=== PATIENT | male | born 1970 | race Caucasian/White ===

== ENCOUNTER 2021-03-02 19:45 | Inpatient (IN) | payer BC, SELFPAY ==
--- NOTE | ~2021-03-02 | XR_ITS ---
EXAMINATION: XR chest 2V DATE: 03/02/2021 20:14 INDICATION: 2 days of weakness and abdominal pain TECHNIQUE: PA and lateral views of the chest were obtained. COMPARISON: None FINDINGS: The lungs are clear with no focal airspace opacities, pulmonary edema, pleural effusion or pneumothor ax. Mild S-shaped curvature of the thoracolumbar spine. Cholecystectomy clips in right upper quadrant . IMPRESSION: 1. No acute cardiopulmonary disease. Reviewed, dictated and finalized at location [facility].
--- NOTE | ~2021-03-02 | CT_ITS ---
EXAMINATION: CT abdomen pelvis w con DATE: 03/03/2021 01:08 INDICATION: Upper and mid abdominal pain. Elevated lipase. TECHNIQUE: Computed tomography (CT) of the abdomen and pelvis was performed with 100 cc Omnipaque 350 intravenous contrast. Automated exposure control and iterative reconstruction technique were employe d. Exam dose: 270.27 mGy-cm total exam DLP. COMPARISON: None. FINDINGS: Normal heart size. No pericardial or pleural effusion. The lung bases are clear. Status post cholecystectomy. No bile duct or pancreatic duct dilatation. The liver, spleen, pancreas, and adrenal glands and kidneys are unremarkable. No urinary tract calculus or hydroureteronephrosis. Normal caliber of the abdominal aorta. No intraperitoneal or retroperitoneal or pelvic mass lesion or adenopathy or ascites. The urinary bladder is unremarkable. Normal appendix. No bowel obstruction, bowel wall thickening, pneumatosis or intraperitoneal free air . Included skeletal structures are unremarkable. IMPRESSION: Pancreas appears normal. Normal CT examination of pancreas pancreas does not exclude villalobos creatitis. Normal appendix Status post cholecystectomy Reviewed, dictated and finalized at [facility]. Reviewed, dictated and finalized at location [facility]. IMPRESSION: Pancreas appears normal. Normal CT examination of pancreas pancrea s does not exclude pancreatitis. Normal appendix Status post cholecystectomy
--- NOTE | 2021-03-02 19:47 | ECG_ITS ---
Measurements Intervals [place] Rate: 98 P: 47 [place]: 151 QRS: 48 QRSD: 114 T: 63 QT: 396 QTc: 508 Interpretive Statements SINUS RHYTHM INCOMPLETE RIGHT BUNDLE BRANCH BLOCK BORDERLINE ST-T WAVE ABNORMALITY- DIFFUSE LEADS BASELINE ARTIFACT- I, II, AVR, AVL, AVF BORDERLINE ECG Electronically Signed On 03-02-2021 20:11:50 CDT by Marco A Gayle D.O.
[2021-03-02 20:08] VITALS: BP 128/78; PULSE 85; RESP 20; TEMP 36.8; O2SAT 95
[2021-03-02 20:14] LABS: Basophils Percent Auto 0.3 % (0.2-1.2); Eosinophils Percent Auto 0.2 % (0-4.4); Hematocrit 41.2 % (42.0-52.0); Hemoglobin 15.2 g/dL (14.0-18.0); Immature Granulocyte Absolute 0.11 K/mm3 (0.00-0.031); Immature Granulocyte Percent A 1.7 % (0-0.5); Lymphocytes Absolute Auto 1.01 K/mm3 (0.9-3.2); Lymphocytes Percent Auto 15.8 % (18.3-44.2); Mean Corpuscular HGB Conc 36.9 g/dl (32-36); Mean Corpuscular Hemoglobin 33.9 pg (26-34); Mean Platelet Volume 8.3 fl (7.4-10.4); Monocytes Absolute Auto 0.8 K/mm3 (0.1-0.6); Monocytes Percent Auto 12.6 % (2.6-8.5); Neutrophils Absolute Auto 4.5 K/mm3 (1.3-6.7); Neutrophils Percent Auto 69.4 % (45.5-73.1); Platelet Count Result 218 k/mm3 (150-375); Red Blood Count 4.48 M/mm3 (4.6-6.20); Red Cell Distribution Width 12.4 % (11.5-14.5); White Blood Count 6.4 K/mm3 (4.5-10.0)
[2021-03-02 20:30] LABS: Alanine Aminotransferase 17 U/L (4-50); Albumin Level 4.8 g/dL (3.5-5.1); Alkaline Phosphatase 153 U/L (38-126); Anion Gap 25 mmol/L (8-16); Aspartate Amino Transferase 19 U/L (17-59); Bilirubin,Total 0.8 mg/dL (0.2-1.3); Blood Urea Nitrogen 14 mg/dL (9-20); Calcium 9.4 mg/dL (8.4-10.2); Carbon Dioxide 7 mmol/L (22-30); Chloride 98 mmol/L (98-107); Estimated CRCL calculation 71 ml/min; Estimated Glomerular Filt Rate > 60; Glucose 478 mg/dL (65-110); Potassium 3.6 mmol/L (3.4-5.0); Sodium 130 mmol/L (137-145)
[2021-03-02 21:47] VITALS: BP 126/78; PULSE 86; RESP 16; TEMP 36.8; O2SAT 100
[2021-03-02 22:55] LABS: Add Urine Microscopic? YES; Appearance Urine Clear (Clear); Bacteria Urine Trace /hpf; Bilirubin Urine Negative (Negative); Blood Urine 1+ (Negative); Color Urine Straw (Yellow); Glucose Urine UA 3+ mg/dL (Negative); Ketones Urine 2+ mg/dL (Negative); Leukocyte Esterase Ur Negative LEU/UL (Negative); Mucus Urine Rare /lpf; Nitrate Urine Negative (Negative); Protein Urine 1+ mg/dL (Negative); Specific Grav Ur 1.025 (1.001-1.035); Squamous Epithelial Cell Urine Rare /hpf (Few); Urobilinogen Urine Negative mg/dL (<2.0); WBC Urine 0-3 /hpf
[2021-03-02 23:08] LABS: Magnesium 2.1 mg/dL (1.6-2.3); Phosphorus 4.2 mg/dL (2.5-4.5)
[2021-03-02 23:10] VITALS: BP 124/76; PULSE 89; RESP 17; O2SAT 100
--- NOTE | 2021-03-02 23:19 | ED.WEAKNESS ---
HPI - Weakness General Chief complaint: Weakness Stated complaint: abd pain x 2 days, weakness Time Seen by Provider: 03/02/21 22:34 Source: patient and RN notes reviewed Mode of arrival: ambulatory Limitations: no limitations History of Present Illness HPI Narrative: This is a 50 year old male who presents for evaluation of weakness and abdominal pain. Patient states he has been weak for 2 days. He has increased thirst, frequent urination, and lightheadedness. He reports midabdominal discomfort and increased stomach gurgling. He states he is not having real abdominal pain. He also states he is here because he feels short of breath and chest discomfort. He denies vomiting, diarrhea, cough or fever. He reports history of prediabetes but he does not take medication. Related Data Home Medications Medication Instructions Recorded Confirmed dupilumab [Dupixent Syringe] 300 mg SUBCUT [id number] 03/02/21 03/03/21 levothyroxine 175 mcg PO DAILY 03/02/21 03/03/21 Adult One Daily Multivitamin 1 tablet PO DAILY 03/03/21 03/03/21 glucosamine sulfate [Glucosamine] 500 mg PO DAILY 03/03/21 03/03/21 Allergies Allergy/AdvReac Type Severity Reaction Status Date / Time No Known Allergies Allergy Verified 03/02/21 21:50 Review of Systems Review of Systems: All systems reviewed & are unremarkable except as noted in HPI and below Constitutional: Constitutional: Denies chills, Reports fatigue and Denies fever(s) ENT: Denies sore throat Cardiovascular: Cardiovascular: Reports chest pain and Denies radiating jaw, neck or arm pain Respiratory: Respiratory: Denies cough and Reports dyspnea Gastrointestinal: Gastrointestinal: Reports abdominal pain, Denies diarrhea, Reports nausea and Denies vomiting Neurologic: Reports weakness PMFSH Past Medical History Medical History (Updated 03/03/21 @ 07:37 by Padmini Gutierrez MD) Hypothyroidism Surgical History Surgical History (Updated 03/02/21 @ 23:20 by Padmini Gutierrez MD) No pertinent past surgical history Social History Social History (Updated 03/02/21 @ 23:20 by Padmini Gutierrez MD) Smoking status: Never smoker Second hand tobacco smoke exposure: Yes Alcohol intake: current Drinks per week: 6 Substance use: never Substance use type: does not use Gender identity (if verbalized by the patient): Male Spiritual care concerns: No Exam Const: General: alert Orientation/consciousness: patient oriented x3 Other: lethargic Eyes: EOM: EOMs intact bilaterally Resp: Effort & Inspection: normal respiratory effort and no retractions Auscultation: clear to auscultation bilaterally Cardio: Rate: regular rate Rhythm: regular rhythm Heart sounds: no murmurs GI: GI Palp: Yes Soft to palpation, No Tenderness to palpation present (GI) and No Guarding due to palpation present (GI) Auscultation: normal bowel sounds Skin: General skin exam: normal color Rashes: no rashes Neuro: General: patient oriented x3, moves all extremities and CN's II-XI intact bilaterally Psych: Mental Status: mental status grossly normal Affect: normal affect Course Reevaluation(s) Reevaluation #1: I discussed with patient that he is a diabetic. He has DKA as cause of his weakness . He is being hydrated and started on insulin drip Date: 03/03/21 Time: 02:00 Reevaluation #2: I Discussed with nursing staff patient needs to be started on D5 1/2 NS infusion now. She is requesting from pharmacy. Date: 03/03/21 Time: 04:10 Consultations Consultation #1: I discussed case with Dr. Small. He agrees with management. No further recommendations Date: 03/03/21 Time: 02:00 Consultation #2: I discussed case with DR. Acosta Date: 03/03/21 Time: 03:11 Vital Signs Vital signs: Vital Signs Temperature 98.3 F 03/02/21 20:08 Pulse Rate 85 03/02/21 20:08 Respiratory Rate 20 03/02/21 20:08 Blood Pressure 128/78 03/02/21 20:08 Pulse Oximetry 95 03/02/21 20:08
[2021-03-02] MEDS: SODIUM CHLORIDE 0.9% IV 1,000 ML 999 ML IV CONT ×2 (23:31→23:32)
[2021-03-02] MEDS: PANTOPRAZOLE SODIUM IV 40 MG VIAL IV PUSH (23:32)
[2021-03-02 23:42] LABS: INR 0.8
[2021-03-02 23:43] LABS: Partial Thromboplastin Time 25.3 SECONDS (22.3-36.8)
[2021-03-02 23:45] LABS: D Dimer 0.34 ug/mL (<0.48)
[2021-03-02 23:49] LABS: Troponin I < 0.012 ng/mL (0.000-0.034)
[2021-03-03] VITALS (9 sets, daily range): BP systolic 87–117; BP diastolic 46–76; PULSE 77–101; RESP 13–18; TEMP 36.3–36.4; O2SAT 90–100; BMI 19.7
[2021-03-03 00:09] LABS: Lipase 800 U/L (23-300)
[2021-03-03 00:37] LABS: Alveolar/Arterial O2 Gradient 9.3 mmHg; Base Excess ABG -19.5 mEq/l (+/-2.0); Carboxyhemoglobin 0.3 % THb (0-2.0); Fractional Inspired Oxygen 21 %; HCO3 ABG 6.9 mEq/l (22.0-26.0); Methemoglobin ABG 0.3 %THb (0-1.5); Oxygen Content ABG 17.5 %vol (16.0-22.0); Oxygen Saturation ABG 97.4 % (95.0-100.0); Oxyhemoglobin 96.8 % THb (90.0-100.0); PO2 ABG 117.7 mmHg (80.0-100.0); Reduced Hemoglobin 2.6 %THb (0-5.0); Total Hemoglobin 12.7 g/dL (12.0-18.0)
[2021-03-03 00:39] LABS: pH ABG 7.176 (7.350-7.450)
[2021-03-03 00:40] LABS: Modified Allen's Test Pass; Site Drawn RIGHT RADIAL
--- NOTE | 2021-03-03 00:57 | PC.NURSE ---
pt in CT at this time.
[2021-03-03 01:12] LABS: Glucose Point of Care 343 mg/dl (65-105)
[2021-03-03 01:18] LABS: Anion Gap 16 mmol/L (8-16); Blood Urea Nitrogen 12 mg/dL (9-20); Calcium 7.8 mg/dL (8.4-10.2); Carbon Dioxide 7 mmol/L (22-30); Chloride 108 mmol/L (98-107); Estimated CRCL calculation 88 ml/min; Estimated Glomerular Filt Rate > 60; Glucose 316 mg/dL (65-110); Potassium 2.8 mmol/L (3.4-5.0); Sodium 131 mmol/L (137-145)
[2021-03-03] MEDS: INSULIN HUMAN REGULAR (*BKC) 100 UNITS in SODIUM CHLORIDE 0.9% IV 99 ML 5.6 UNITS IV CONT (01:19)
[2021-03-03] MEDS: POTASSIUM CHLORIDE 20 MEQ TABLET 40 MEQ PO (01:37)
[2021-03-03 03:46] LABS: Glucose Point of Care 197 mg/dl (65-105)
[2021-03-03] MEDS: DEXTROSE 5% 1,000 ML 1,000 ML 100 ML IVPB (04:25)
[2021-03-03 05:14] LABS: Anion Gap 13 mmol/L (8-16); Blood Urea Nitrogen 10 mg/dL (9-20); Calcium 8.2 mg/dL (8.4-10.2); Carbon Dioxide 12 mmol/L (22-30); Chloride 105 mmol/L (98-107); Estimated CRCL calculation 99 ml/min; Estimated Glomerular Filt Rate > 60; Glucose 192 mg/dL (65-110); Potassium 2.7 mmol/L (3.4-5.0); Sodium 130 mmol/L (137-145)
[2021-03-03 05:38] LABS: Glucose Point of Care 149 mg/dl (65-105)
[2021-03-03] MEDS: KCL 20 MEQ/D5/0.45% SOD CHL 1,000 ML 150 ML IV CONT ×2 (06:08→13:11)
--- NOTE | 2021-03-03 06:24 | ADMGEN ---
This patient, Dami Bustamante, was admitted to Intensive Care Unit-12 at 0555. Patient/family oriented to hospital policies and general routines including ID bracelet, bed and alarms, visiting hours, pain management, procedures, bathroom and other care routines, personal items, smoking policy, room service/diet, and visiting hours. Information on how to activate the Rapid Response Team has been discussed. Patient/Family are encouraged to report perceived risks to care and to ask questions if they do not understand what they are told or what they should do.
--- NOTE | 2021-03-03 06:44 | PM.IMHP ---
H&P: HPI History of Present Illness Date/Time: 03/03/21 06:44 Chief Complaint: LIGHTHEADEDNESS Narrative: This is a 50 year old male who presents to the ED for evaluation of not feeling well. he was feeling lighthead and weak he also reports abdominal pain frequent urination thirst since past few days. He denies any nausea or vomiting. No fever or chills no shortness of breath or chest pain or cough. He reports he has a history of pre diabetes but does not take any medication. In the ER he was found to be in DKA with severe metabolic acidosis hemoglobin A1c of 14 blood sugar of 4 0s with positive beta hydroxybutyrate he was started on insulin drip and admitted to the ICU for further evaluation and management. Review of Systems Review of Systems: - CONSTITUTIONAL: Denies weight loss, fever and chills. - HEENT: Denies changes in vision and hearing - RESPIRATORY: Denies SOB and cough. - CV: Denies palpitations and CP. - GI: Reports abdominal pain, denies nausea, vomiting and diarrhea. - : Denies dysuria and urinary frequency. - MSK: Denies myalgia and joint pain. - SKIN: Denies rash and pruritus. - NEUROLOGICAL: Denies headache and syncope. - PSYCHIATRIC: Denies recent changes in mood. Denies anxiety and depression. All systems reviewed & are unremarkable except as noted in HPI and below Constitutional: Constitutional: Reports fatigue and Reports weakness Neurologic: Reports weakness Endocrine: Endocrine: Reports fatigue PMFSH Past Medical History Medical History (Updated 03/03/21 @ 06:47 by Kali Acosta MD) Hypothyroidism Surgical History Surgical History (Updated 03/02/21 @ 23:20 by Padmini Gutierrez MD) No pertinent past surgical history Social History Social History (Updated 03/02/21 @ 23:20 by Padmini Gutierrez MD) Smoking status: Never smoker Second hand tobacco smoke exposure: Yes Alcohol intake: current Drinks per week: 6 Substance use: never Substance use type: does not use Gender identity (if verbalized by the patient): Male Spiritual care concerns: No Meds Home Medications and Allergies Home Medications Medication Instructions Recorded Confirmed Type dupilumab [Dupixent Syringe] 300 mg SUBCUT [id number] 03/02/21 03/03/21 History levothyroxine 175 mcg PO DAILY 03/02/21 03/03/21 History Adult One Daily Multivitamin 1 tablet PO DAILY 03/03/21 03/03/21 History glucosamine sulfate [Glucosamine] 500 mg PO DAILY 03/03/21 03/03/21 History Allergies Allergy/AdvReac Type Severity Reaction Status Date / Time No Known Allergies Allergy Verified 03/02/21 21:50 Vital Signs Vital Signs - 24 hr 03/02/21 20:08 03/02/21 21:47 03/02/21 23:10 Temperature 98.3 F 98.3 F Pulse Rate 85 86 89 Respiratory Rate 20 16 17 Blood Pressure 128/78 126/78 124/76 Pulse Oximetry 95 100 100 03/03/21 01:17 03/03/21 02:48 03/03/21 05:46 Temperature Pulse Rate 87 83 82 Respiratory Rate 15 13 16 Blood Pressure 117/69 105/76 97/66 L Pulse Oximetry 100 100 99 Exam Narrative: GENERAL: The patient is well developed, not in acute distress HEENT: Nonicteric sclerae, PERRLA, EOMI. Oropharynx clear. Moist mucous membranes. Conjunctivae appear well perfused. CHEST: Chest wall is nontender. HEART: Regular rate and rhythm without murmur, rubs, or gallops LUNGS: Clear to auscultation bilaterally. no respiratory distress ABDOMEN: Soft, positive bowel sounds, non-tender, no organomegaly. SKIN: No rash, no excessive bruising, petechiae, or purpura. NEUROLOGIC: Cranial nerves II-XII intact, alert and oriented x 3, no gross motor deficits EXTREMITIES: no edema, cyanosis or clubbing H&P: Results Labs Labs: Short CBC 03/02/21 Range/Units 20:06 WBC 6.4 (4.5-10.0) K/mm3 Hgb 15.2 (14.0-18.0) g/dL Hct 41.2 L (42.0-52.0) % Plt Count 218 (150-375) k/mm3 [facility] 03/02/21 03/03/21 03/03/21 20:06 00:35 04:08 Sodium 130 L 131 L 130 L [place]
[2021-03-03 06:47] LABS: Glucose Point of Care 164 mg/dl (65-105)
[2021-03-03 07:45] LABS: Glucose Point of Care 176 mg/dl (65-105)
[2021-03-03 08:51] LABS: Glucose Point of Care 184 mg/dl (65-105)
[2021-03-03 09:31] LABS: Anion Gap 11 mmol/L (8-16); Blood Urea Nitrogen 11 mg/dL (9-20); Calcium 8.2 mg/dL (8.4-10.2); Carbon Dioxide 12 mmol/L (22-30); Chloride 105 mmol/L (98-107); Estimated CRCL calculation 107 ml/min; Estimated Glomerular Filt Rate > 60; Glucose 174 mg/dL (65-110); Potassium 3.1 mmol/L (3.4-5.0); Sodium 128 mmol/L (137-145)
[2021-03-03 10:00] LABS: Glucose Point of Care 166 mg/dl (65-105)
[2021-03-03] MEDS: ENOXAPARIN 40 MG/0.4 ML SYRINGE SUB-Q (11:00)
[2021-03-03 11:01] LABS: Glucose Point of Care 154 mg/dl (65-105)
[2021-03-03] MEDS: MULTIVITAMINS THERAPEUTIC TAB (*BKC) 1 TABLET PO (11:01)
[2021-03-03] MEDS: LEVOTHYROXINE SODIUM 100 MCG TABLET PO (11:01)
[2021-03-03] MEDS: LEVOTHYROXINE SODIUM 75 MCG TABLET PO (11:01)
[2021-03-03 12:03] LABS: Glucose Point of Care 141 mg/dl (65-105)
--- NOTE | 2021-03-03 12:27 | WPDCNINT ---
Assessment and Plan Assessment and plan (1) Diabetic ketoacidosis: Code(s): E11.10 - Type 2 diabetes mellitus with ketoacidosis without coma Status: Acute Assessment and Plan: Patient presented with weakness, fatigue polyuria, polydipsia. Was diagnosed with DKA in the ER along with anion gap metabolic acidosis and elevated beta hydroxybutyrate. Received IV fluids and started on insulin infusion and transferred to the ICU for further management. -anion gap in the ICU as closed, will transition to long-acting insulin and sliding scale insulin -will have Nutrition to evaluate the patient -will consult clinical systems educator (2) Diabetes mellitus, new onset: Code(s): E11.9 - Type 2 diabetes mellitus without complications Status: Acute Assessment and Plan: New onset diabetes -hemoglobin A1c is 14.0 this admission (3) Hypothyroidism: Code(s): E03.9 - Hypothyroidism, unspecified Status: Acute Assessment and Plan: Continue levothyroxine (4) DVT prophylaxis: Code(s): Z29.9 - Encounter for prophylactic measures, unspecified Status: Acute Assessment and Plan: On Lovenox Additional Plan Discussed with patient updated with his condition and plan care. He is aware that he has a new onset diabetes, Code status: Full code Critical care time spent: 43 minutes This dictation may have been done utilizing a voice recognition system. Attempts have been made to correct errors. However, there may be uncorrected grammatical, spelling, and recognition errors present. Due to a high probability of clinically significant, life threatening deterioration, the patient required my highest level of preparedness to intervene emergently and I personally spent this critical care time directly and personally managing the patient. This critical care time included obtaining a history; examining the patient; pulse oximetry; ordering and review of studies; arranging urgent treatment with development of a management plan; evaluation of patient's response to treatment; frequent reassessment; and discussions with other providers. It was exclusive of separately billable procedures and treating other patients and teaching time. Please see Assessment and Plan section and the rest of the note for further information on patient assessment and treatment [employer] Maker Consult Note Consult date: 03/03/21 Time Seen: 07:23 HPI: Dami Bustamante is a 50 year old male history of hypothyroidism, otherwise healthy individual presented the ED with complains of weakness and lightheadedness along with abdominal pain, frequent urination, increased thirst for the past few days. He denies any nausea vomiting. Denies any fevers, chills, shortness of breath, cough, chest pain. In the ER patient was found to be in diabetic ketoacidosis, hemoglobin A1c of 14, blood sugars of 478, anion gap metabolic acidosis, positive beta hydroxybutyrate. Patient was given 2 L IV fluid bolus and started on insulin infusion and transfer the ICU for further management. Patient seen and examined this morning, pleasant individual, has any chest pain, shortness of breath, abdominal pain, nausea, vomiting. Patient states this is new onset diabetes. Patient's anion gap has closed, blood sugars in a good range. Patient has not had give additional IV fluids. Hemodynamically stable on room air with good O2 sats. Review of Systems Review of Systems: All systems reviewed & are unremarkable except as noted in HPI and below PMFSH Past Medical History Medical History (Updated 03/03/21 @ 12:33 by Lukas Small MD) Hypothyroidism Surgical History Surgical History (Updated 03/02/21 @ 23:20 by Padmini Gutierrez MD) No pertinent past surgical history Social History Social History (Updated 03/02/21 @ 23:20 by Padmini Gutierrez MD) Smoking status: Never smoker Second hand tobacco smoke exposure: Yes Alcohol intake: current
[2021-03-03 12:36] LABS: Anion Gap 7 mmol/L (8-16); Blood Urea Nitrogen 11 mg/dL (9-20); Calcium 8.9 mg/dL (8.4-10.2); Carbon Dioxide 16 mmol/L (22-30); Chloride 109 mmol/L (98-107); Estimated CRCL calculation 107 ml/min; Estimated Glomerular Filt Rate > 60; Glucose 128 mg/dL (65-110); Potassium 3.4 mmol/L (3.4-5.0); Sodium 132 mmol/L (137-145)
[2021-03-03] MEDS: SODIUM CHLORIDE 0.9% IV 1,000 ML 999 ML IV CONT (12:57)
[2021-03-03 12:59] LABS: Glucose Point of Care 137 mg/dl (65-105)
[2021-03-03] MEDS: POTASSIUM CHLORIDE 20 MEQ PACKET (FOR LIQUID) 40 MEQ PO (12:59)
[2021-03-03 14:19] LABS: Glucose Point of Care 104 mg/dl (65-105)
[2021-03-03] MEDS: INSULIN GLARGINE (*BKC) 100 UNITS/ML 20 UNITS SUB-Q (14:25)
[2021-03-03 16:47] LABS: Anion Gap 9 mmol/L (8-16); Blood Urea Nitrogen 11 mg/dL (9-20); Calcium 8.5 mg/dL (8.4-10.2); Carbon Dioxide 15 mmol/L (22-30); Chloride 106 mmol/L (98-107); Estimated CRCL calculation 93 ml/min; Estimated Glomerular Filt Rate > 60; Glucose 155 mg/dL (65-110); Potassium 2.9 mmol/L (3.4-5.0); Sodium 130 mmol/L (137-145)
[2021-03-03 17:52] LABS: Glucose Point of Care 247 mg/dl (65-105)
[2021-03-03] MEDS: INSULIN ASPART (*BKC) 100 UNITS/ML SUB-Q (18:13)
--- NOTE | 2021-03-03 19:21 | PC.NURSE ---
This patient, Dami Bustamante, was transferred to [[id number] ] on 03/03/21 at 1840. Personal belongings sent with patient. Report given to [Mattie ]. Appropriate documentation sent with patient.
[2021-03-03 20:04] LABS: Anion Gap 8 mmol/L (8-16); Blood Urea Nitrogen 12 mg/dL (9-20); Calcium 8.8 mg/dL (8.4-10.2); Carbon Dioxide 15 mmol/L (22-30); Chloride 106 mmol/L (98-107); Estimated CRCL calculation 93 ml/min; Estimated Glomerular Filt Rate > 60; Glucose 301 mg/dL (65-110); Potassium 3.1 mmol/L (3.4-5.0); Sodium 129 mmol/L (137-145)
[2021-03-03 23:15] LABS: Glucose Point of Care 274 mg/dl (65-105)
[2021-03-04] MEDS: LEVOTHYROXINE SODIUM 75 MCG TABLET PO (06:13)
[2021-03-04] MEDS: LEVOTHYROXINE SODIUM 100 MCG TABLET PO (06:13)
[2021-03-04 06:51] LABS: Alanine Aminotransferase 13 U/L (4-50); Albumin Level 2.9 g/dL (3.5-5.1); Alkaline Phosphatase 94 U/L (38-126); Anion Gap 6 mmol/L (8-16); Aspartate Amino Transferase 20 U/L (17-59); Bilirubin,Total 0.5 mg/dL (0.2-1.3); Blood Urea Nitrogen 11 mg/dL (9-20); Calcium 8.5 mg/dL (8.4-10.2); Carbon Dioxide 22 mmol/L (22-30); Chloride 102 mmol/L (98-107); Estimated CRCL calculation 107 ml/min; Estimated Glomerular Filt Rate > 60; Glucose 206 mg/dL (65-110); Magnesium 1.9 mg/dL (1.6-2.3); Phosphorus 1.4 mg/dL (2.5-4.5); Potassium 2.4 mmol/L (3.4-5.0); Sodium 130 mmol/L (137-145)
[2021-03-04 07:40] LABS: Glucose Point of Care 204 mg/dl (65-105)
[2021-03-04 07:50] VITALS: BP 138/60; PULSE 70; RESP 16; TEMP 36.1; O2SAT 98
[2021-03-04] MEDS: INSULIN GLARGINE (*BKC) 100 UNITS/ML 20 UNITS SUB-Q (08:04)
[2021-03-04] MEDS: MULTIVITAMINS THERAPEUTIC TAB (*BKC) 1 TABLET PO (08:04)
[2021-03-04] MEDS: ENOXAPARIN 40 MG/0.4 ML SYRINGE SUB-Q (08:04)
[2021-03-04] MEDS: INSULIN ASPART (*BKC) 100 UNITS/ML SUB-Q ×4 (08:05→17:31)
[2021-03-04] MEDS: POTASSIUM PHOS/SODIUM PHOS 250 MG TABLET PO (09:30)
[2021-03-04] MEDS: SODIUM CHLORIDE 0.9% IV 1,000 ML 150 ML IV CONT ×2 (09:42→16:30)
[2021-03-04 12:43] LABS: Glucose Point of Care 181 mg/dl (65-105)
[2021-03-04 14:25] VITALS: BP 108/60; PULSE 82; RESP 14; TEMP 36.3; O2SAT 100
--- NOTE | 2021-03-04 14:27 | PC.NURSE ---
Spoke with Dr. Lange regarding parent educator consult. outreach educator is on vacation today and unable to see patient. Per Dr. Lange, okay to discharge patient and be sure to provide patient with education/teaching regarding insulin administration and accu checks.
[2021-03-04 15:51] LABS: Anion Gap 5 mmol/L (8-16); Blood Urea Nitrogen 9 mg/dL (9-20); Calcium 8.4 mg/dL (8.4-10.2); Carbon Dioxide 22 mmol/L (22-30); Chloride 100 mmol/L (98-107); Estimated CRCL calculation 106 ml/min; Estimated Glomerular Filt Rate > 60; Glucose 215 mg/dL (65-110); Potassium 2.8 mmol/L (3.4-5.0); Sodium 127 mmol/L (137-145)
--- NOTE | 2021-03-04 15:52 | PM.DS ---
DS: Admitting Diagnosis Admitting Diagnosis diabetic ketoacidosis DS: Discharge Diagnosis Discharge Diagnosis (1) Hypothyroidism: Code(s): E03.9 - Hypothyroidism, unspecified Status: Acute (2) DVT prophylaxis: Code(s): Z29.9 - Encounter for prophylactic measures, unspecified Status: Acute (3) Diabetes mellitus, new onset: Code(s): E11.9 - Type 2 diabetes mellitus without complications Status: Acute (4) Diabetic ketoacidosis: Code(s): E11.10 - Type 2 diabetes mellitus with ketoacidosis without coma Status: Acute (5) Hypokalemia: Code(s): E87.6 - Hypokalemia Status: Acute (6) Hyperglycemia: Code(s): R73.9 - Hyperglycemia, unspecified Status: Acute (7) Hypophosphatemia: Code(s): E83.39 - Other disorders of phosphorus metabolism Status: Acute DS: Summary Hospital Course Reason for hospitalization: Diabetic ketoacidosis Hospital Course: 50-year-old male with past medical history significant for hypothyroidism presented with complaints of dizziness and weakness and was found to have elevated blood sugar amounting to diabetic ketoacidosis. He was initially treated in the ICU and then was later transferred out. His hemoglobin A1c was noted to be 14.4. He denies any family history of diabetes. He is now being started on Lantus 10 units q.h.s. and short-acting insulin 3 units t.i.d. with meals. He will also be given metformin 500 b.i.d.. During his hospital stay he was noted to have severe hypokalemia which was noted to be resistant to repletion. As a result magnesium supplementation was provided and magnesium levels were also drawn. He was also noted to have hypophosphatemia for which reason it was replaced as well. Patient was provided with diabetic education, glucometer, lancets and test strips. He was advised to follow-up with outpatient records and his PCP as soon as possible. Time Spent with Patient Time attestation: Total time spent providing and/or coordinating discharge services: Exam Narrative: General: comfortable and no acute distress HENMT Mouth: Yes moist mucous membranes Eyes Sclera: sclerae normal Pupils: Equal, round and reactive pupils present Neck Neck: supple Thyroid: thyroid normal Lymphatic: lymphadenopathy not noted Resp Effort & Inspection: normal respiratory effort Auscultation: clear to auscultation bilaterally Cardio Rate: regular rate Rhythm: regular rhythm GI Inspection: non-distended GI Palp: Yes Soft to palpation and No Tenderness to palpation present (GI) Auscultation: normal bowel sounds Other: Deferred Urinary Catheter Urinary Catheter: urine clear Skin General skin exam: normal color and no rashes or lesions noted Neuro Other: Patient is awake, alert, oriented, nonfocal Extremity: General: normal to inspection, no edema and no pedal edema Psych DS: Data Data Completed and Pending Labs on day of discharge: Labs from last 24 hours 03/04/21 03/04/21 03/04/21 14:46 12:16 07:21 Sodium 127 L Potassium 2.8 L* Chloride 100 Carbon Dioxide 22 Anion Gap 5 L BUN 9 Creatinine 0.60 L Estim Creat Clear Calc 106 Estimated GFR > 60 Glucose 215 H POC Capillary Glucose 181 H 204 H Calcium 8.4 Phosphorus Magnesium Total Bilirubin AST ALT Alkaline Phosphatase Total Protein Albumin 03/04/21 03/03/21 03/03/21 05:23 22:24 19:43 Sodium 130 L 129 L Potassium 2.4 L* 3.1 L Chloride 102 106 Carbon Dioxide 22 15 L Anion Gap 6 L 8 BUN 11 12 Creatinine 0.60 L 0.70 Estim Creat Clear Calc 107 93 Estimated GFR > 60 > 60 Glucose 206 H 301 H POC Capillary Glucose 274 H Calcium 8.5 8.8 Phosphorus 1.4 L Magnesium 1.9 Total Bilirubin 0.5 AST 20 ALT 13 Alkaline Phosphatase 94 Total Protein 5.0 L Albumin 2.9 L 03/03/21 03/03/21 17:41 16:31 Sodium 130 L Potassium
[2021-03-04] MEDS: MAGNESIUM SULFATE 3GM/D5W100ML 3 GM/100 ML BAG IVPB (16:34)
[2021-03-04] MEDS: MAGNESIUM OXIDE 400 MG TABLET 800 MG PO (16:34)
[2021-03-04] MEDS: POTASSIUM CHLORIDE 20 MEQ PACKET (FOR LIQUID) 80 MEQ PO (16:45)
--- NOTE | 2021-03-04 16:52 | PC.NURSE ---
Dr. Dempsey is aware of patient K of 2.8. New orders received.
[2021-03-04 17:44] LABS: Magnesium 2.7 mg/dL (1.6-2.3); Potassium 4.1 mmol/L (3.4-5.0)
== END 2021-03-04 18:41 | disposition home or self-care (01) | DRG 638 ==
LOC: ANHED 23:07 → ANHICU 03-03 03:52 → ANH2MED 03-04 14:24 → ANHICU 03-08 14:38
PROVIDERS: Emergency Medicine; Internal Medicine; Admitting Provider Internal Medicine; Emergency Provider General Practice; PCP Family Medicine; Visit Provider Internal Medicine
DX: E11.10 Type 2 diabetes mellitus with ketoacidosis without coma (principal); E87.2 Acidosis; E11.65 Type 2 diabetes mellitus with hyperglycemia; T38.3X5A Adverse effect of insulin and oral hypoglycemic [antidiabetic] drugs, initial encounter; E03.9 Hypothyroidism, unspecified; E87.6 Hypokalemia; E83.39 Other disorders of phosphorus metabolism
CPT/HCPCS: 36415; 36600; 71046; 74177; 80048; 80053; 81001; 82010; 82375; 82805; 82948; 83036; 83050; 83690; 83735; 84100; 84132; 84484; 85025; 85380; 85610; 85730; 93005; 96361; 96365; 96366; 96367; 96375; 96376; 99285; A9270; C9113; G0378; J1650; J1815; J3475; J3480; J7030; J7060; J7070; Q9967

== ENCOUNTER 2021-03-05 13:08 | Outpatient (CLI) | payer BC, SELFPAY ==
[2021-03-05 13:55] LABS: Anion Gap 5 mmol/L (8-16); Blood Urea Nitrogen 10 mg/dL (9-20); Calcium 9.2 mg/dL (8.4-10.2); Carbon Dioxide 28 mmol/L (22-30); Chloride 96 mmol/L (98-107); Estimated Glomerular Filt Rate > 60; Glucose 480 mg/dL (65-110); Potassium 3.7 mmol/L (3.4-5.0); Sodium 129 mmol/L (137-145)
== END 2021-03-05 13:09 | disposition home or self-care (01) ==
PROVIDERS: PCP Family Medicine; Visit Provider Internal Medicine
DX: E87.6 Hypokalemia (principal)
CPT/HCPCS: 36415; 80048

== ENCOUNTER 2021-03-09 09:29 | Outpatient (RCR) | payer BC, SELFPAY | END 2021-04-26 16:23 | disposition home or self-care (01) | LOC: ANHDMC 09:29 | PROVIDERS: PCP Family Medicine; Visit Provider Family Medicine | DX: E11.10 Type 2 diabetes mellitus with ketoacidosis without coma (principal); Z71.89 Other specified counseling | CPT/HCPCS: G0108 ==